=== PATIENT | female | born 1935 | race Caucasian/White ===

== ENCOUNTER → 2016-12-24 | Outpatient (CLI) | payer MEDICARE, SELFPAY ==
[~2016-12-24] MED LIST: ALLERGY RELIEF10 M1 PO; BUSPAR 5MG TABLE5 MG PO; DITROPAN 5 MG TA5 MG PO; FOLIC ACID 1 MG1 MG PO; GLUCOTROL5 MG PO; KLOR-CON M1010 MEQ PO; LEVEMIR FL100 UNIT/1 SC; LEVOTHYROXINE25 MCG PO; LISINOPRIL2.5 MG PO; LOPRESSOR50 MG PO; MIDODRINE HCL2.5 MG PO; MIRALAX17 GM PO; MIRTAZAPINE15 MG PO; NAPROSYN500 MG PO; NESINA25 MG PO; NEURONTIN 100100 MG PO; NORCO 5-325 TA1 EACH PO; PROTONIX40 MG PO; PYRIDIUM200 MG PO; SIMVASTATIN80 MG PO; TOLTERODINE TART4 MG PO; TOPROL XL50 MG PO; VITAMIN B-12500 MCG PO
[2016-12-24 09:31] LABS: BUN/CREATININE RATIO 13 (0-10)
== END ==
LOC: LAB 08:07
PROVIDERS: Emergency Medicine
DX: E11.42 Type 2 diabetes mellitus with diabetic polyneuropathy (principal); E11.65 Type 2 diabetes mellitus with hyperglycemia; E03.8 Other specified hypothyroidism; E11.69 Type 2 diabetes mellitus with other specified complication; E78.2 Mixed hyperlipidemia; F41.1 Generalized anxiety disorder; I10 Essential (primary) hypertension; K21.9 Gastro-esophageal reflux disease without esophagitis; L84 Corns and callosities; N30.00 Acute cystitis without hematuria; N39.0 Urinary tract infection, site not specified; N81.89 Other female genital prolapse; R10.31 Right lower quadrant pain; R11.0 Nausea; R30.0 Dysuria; Z79.899 Other long term (current) drug therapy
CPT/HCPCS: 36415; 80053; 80061; 82043; 82570; 83036; 83704

== ENCOUNTER 2017-01-15 16:59 | Emergency (ER) | payer MEDICARE, SELFPAY ==
[2017-01-15 17:58] LABS: HEMOGLOBIN 11.5 gm/dl (12.3-15.3); RED BLOOD COUNT 3.91 M/UL (4.00-5.10); WHITE BLOOD COUNT 6.3 K/UL (4.5-11.0)
[2017-01-15 18:40] LABS: BUN/CREATININE RATIO 17 (0-10)
== END 2017-01-15 22:24 | disposition home or self-care (01) ==
LOC: ER1 16:59
PROVIDERS: Physician Assistant
DX: J32.9 Chronic sinusitis, unspecified (principal); N39.0 Urinary tract infection, site not specified; R11.2 Nausea with vomiting, unspecified; E11.9 Type 2 diabetes mellitus without complications; I10 Essential (primary) hypertension; E03.9 Hypothyroidism, unspecified; E78.5 Hyperlipidemia, unspecified; Z88.0 Allergy status to penicillin; Z88.6 Allergy status to analgesic agent; Z90.49 Acquired absence of other specified parts of digestive tract
CPT/HCPCS: 36415; 80053; 81001; 83690; 85025; 99283

== ENCOUNTER → 2017-01-31 | Outpatient (CLI) | payer MEDICARE, SELFPAY ==
[2017-01-31 08:21] LABS: BUN/CREATININE RATIO 13 (0-10)
== END ==
LOC: LAB 07:15
PROVIDERS: Emergency Medicine
DX: E03.8 Other specified hypothyroidism (principal); E11.42 Type 2 diabetes mellitus with diabetic polyneuropathy; E11.65 Type 2 diabetes mellitus with hyperglycemia; E11.69 Type 2 diabetes mellitus with other specified complication; E11.9 Type 2 diabetes mellitus without complications; E78.2 Mixed hyperlipidemia; F41.1 Generalized anxiety disorder; I10 Essential (primary) hypertension; K21.9 Gastro-esophageal reflux disease without esophagitis; L84 Corns and callosities; N30.00 Acute cystitis without hematuria; N39.0 Urinary tract infection, site not specified; N81.89 Other female genital prolapse; R10.31 Right lower quadrant pain; R11.0 Nausea; R30.0 Dysuria; R55 Syncope and collapse; Z79.899 Other long term (current) drug therapy
CPT/HCPCS: 36415; 80053; 80061; 82043; 82570; 83036; 83704

== ENCOUNTER 2021-08-17 09:24 | Emergency (ER) | payer MEDICARE ==
[~2021-08-17 09:24] MED LIST changes: +CEFUROXIME500 MG PO; +MACROBID 100 M100 MG PO; +TYLENOL 325MG325 MG PO
[2021-08-17 10:19] LABS: RED BLOOD COUNT 4.62 M/UL (4.00-5.10); WHITE BLOOD COUNT 9.1 K/UL (4.5-11.0)
[2021-08-17 11:40] LABS: BUN/CREATININE RATIO 15 (0-10)
[2021-08-17] MEDS ORDERED: POTASSIUM CHLO10 ME2 PO (13:32)
== END 2021-08-17 15:00 | disposition home or self-care (01) ==
LOC: ER1 09:24
PROVIDERS: Emergency Medicine
DX: E11.649 Type 2 diabetes mellitus with hypoglycemia without coma (principal); E87.6 Hypokalemia; Z20.822 Contact with and (suspected) exposure to COVID-19
CPT/HCPCS: 51701; 70450; 71045; 80053; 81001; 82962; 83605; 83735; 84100; 85025; 87040; 87086; 93005; 99285; J7030; U0002

== ENCOUNTER 2022-01-26 19:11 | Emergency (ER) | payer BC ==
[~2022-01-26 19:11] MED LIST changes: +POTASSIUM CHLO10 ME2 PO
[2022-01-26 20:51] LABS: HEMOGLOBIN 13.1 gm/dl (12.3-15.3); RED BLOOD COUNT 4.46 M/UL (4.00-5.10); WHITE BLOOD COUNT 7.7 K/UL (4.5-11.0)
[2022-01-26 21:10] LABS: BUN/CREATININE RATIO 26 (0-10)
== END 2022-01-26 21:35 | disposition home or self-care (01) ==
LOC: ER1 19:11
PROVIDERS: Physician Assistant
DX: R13.10 Dysphagia, unspecified (principal); K21.9 Gastro-esophageal reflux disease without esophagitis; E78.5 Hyperlipidemia, unspecified; I10 Essential (primary) hypertension; Z79.82 Long term (current) use of aspirin
CPT/HCPCS: 71045; 80053; 82550; 82553; 84484; 85025; 99283

== ENCOUNTER 2022-01-31 08:59 | Inpatient (IN) | payer MEDICARE ==
[~2022-01-31] VITALS: Ht 157.5 cm; Wt 61.2 kg
[~2022-01-31 08:59] MED LIST changes: -MIDODRINE HCL2.5 MG PO
[2022-01-31] MEDS ORDERED: MIDODRINE HCL2.5 MG PO (09:31)
[2022-01-31 09:35] LABS: RED BLOOD COUNT 4.6 M/UL (4.00-5.10); WHITE BLOOD COUNT 11.9 K/UL (4.5-11.0)
[2022-01-31 10:14] LABS: BUN/CREATININE RATIO 18 (0-10)
[2022-01-31] MEDS ORDERED: GLIPIZIDE5 MG PO (14:06)
[2022-01-31] MEDS ORDERED: MIRTAZAPINE15 MG PO (14:06)
[2022-01-31] MEDS ORDERED: OMEPRAZOLE20 MG PO (14:07)
[2022-02-01 03:22] LABS: HEMOGLOBIN 12.8 gm/dl (12.3-15.3); RED BLOOD COUNT 4.34 M/UL (4.00-5.10)
[2022-02-01 03:23] LABS: WHITE BLOOD COUNT 7.1 K/UL (4.5-11.0)
[2022-02-01 04:46] LABS: BUN/CREATININE RATIO 16 (0-10)
[2022-02-02 06:55] LABS: HEMOGLOBIN 13.3 gm/dl (12.3-15.3); RED BLOOD COUNT 4.46 M/UL (4.00-5.10); WHITE BLOOD COUNT 5.8 K/UL (4.5-11.0)
[2022-02-02 07:22] LABS: BUN/CREATININE RATIO 15 (0-10)
[2022-02-03 07:13] LABS: HEMOGLOBIN 14.1 gm/dl (12.3-15.3); RED BLOOD COUNT 4.77 M/UL (4.00-5.10); WHITE BLOOD COUNT 5.4 K/UL (4.5-11.0)
[2022-02-03 07:37] LABS: BUN/CREATININE RATIO 17 (0-10)
[2022-02-04 03:05] LABS: HEMOGLOBIN 13.5 gm/dl (12.3-15.3); RED BLOOD COUNT 4.55 M/UL (4.00-5.10); WHITE BLOOD COUNT 4.4 K/UL (4.5-11.0)
[2022-02-04 04:30] LABS: BUN/CREATININE RATIO 17 (0-10)
--- NOTE | 2022-02-04 17:47 | NUR ---
Patients osmel left and went home. After patients left, patient reported to me that patient feels unsafe around her and that she has been "living in pure hell for several years". Patient states that she doesnt want to go home with him because she feels unsafe. MD notifed of the situation and said that she will put in a referral for social services specialist. Will continue to monitor the patient.
[2022-02-05] MEDS ORDERED: SULFAMETHOXAZO1 EACH PO (11:56)
== END 2022-02-05 17:30 | disposition home health service (06) | DRG 637 ==
LOC: ER1 08:59 → CDU 10:59 → M/S 10:59
PROVIDERS: Internal Medicine; Physician Assistant; ADMIT Internal Medicine
DX: E11.649 Type 2 diabetes mellitus with hypoglycemia without coma (principal); G93.41 Metabolic encephalopathy; N30.00 Acute cystitis without hematuria; F05 Delirium due to known physiological condition; K44.9 Diaphragmatic hernia without obstruction or gangrene; Z79.4 Long term (current) use of insulin; F41.9 Anxiety disorder, unspecified; I10 Essential (primary) hypertension; E11.9 Type 2 diabetes mellitus without complications; Z20.822 Contact with and (suspected) exposure to COVID-19; E87.6 Hypokalemia; R13.10 Dysphagia, unspecified; R00.1 Bradycardia, unspecified; T38.3X5A Adverse effect of insulin and oral hypoglycemic [antidiabetic] drugs, initial encounter; E03.9 Hypothyroidism, unspecified; B95.7 Other staphylococcus as the cause of diseases classified elsewhere; Y95 Nosocomial condition; E78.5 Hyperlipidemia, unspecified; F03.90 Unspecified dementia, unspecified severity, without behavioral disturbance, psychotic disturbance, mood disturbance, and anxiety; M54.2 Cervicalgia; Z90.89 Acquired absence of other organs; Z90.710 Acquired absence of both cervix and uterus; Z90.49 Acquired absence of other specified parts of digestive tract; Z98.890 Other specified postprocedural states; Z88.0 Allergy status to penicillin; Z88.8 Allergy status to other drugs, medicaments and biological substances; Z82.49 Family history of ischemic heart disease and other diseases of the circulatory system; Z79.899 Other long term (current) drug therapy; Z79.82 Long term (current) use of aspirin; Z79.84 Long term (current) use of oral hypoglycemic drugs
CPT/HCPCS: 36415; 70450; 71045; 80048; 80053; 81001; 82550; 82553; 82962; 83036; 83735; 84132; 84484; 85025; 85027; 87077; 87086; 87186; 92610; 93005; 96365; 96366; 97110-GP-CQ; 97116-GP-CQ; 97162; 97166; 97530; 97530-GP-CQ; 97535; 99285; G0378; J1650; J2270; J3370; J7070; U0002